=== PATIENT | male | born 1955 | race Caucasian/White ===

== ENCOUNTER 2022-08-31 00:30 | Day surgery (SDC) | payer MEDICARE, SELFPAY ==
[2022-08-19 15:01] VITALS: BMI 25.8
--- NOTE | 2022-08-31 07:25 | WPDANESEPPF ---
Anes - Initial Pre Proc Eval Procedure: Operation Date: 08/31/22 10:30 Proposed Procedures p Screening Colonoscopy - Dawson Sarkar MD <Kevin Bowen DO - Last Filed: 09/05/22 10:01> Date/Time: 08/31/22 07:25 <Keivn Bowen DO - Last Filed: 09/05/22 10:01> Surgeon: Dawson Sarkar MD <Kevin Bowen, DO - Last Filed: 09/05/22 10:01> Pre Op Diagnosis: neoplasm screening <Kevin Bowen DO - Last Filed: 09/05/22 10:01> Patient Data Age: 67 Gender: M Height: 1.83 m Weight: 86.3 kg <Kevin Bowen DO - Last Filed: 09/05/22 10:01> Allergies Allergy/AdvReac Type Severity Reaction Status Date / Time No Known Allergies Allergy Mild Verified 08/31/22 09:07 <Kevin Bowen DO - Last Filed: 09/05/22 10:01> Home Medications Medication Instructions Recorded Confirmed Type albuterol sulfate 90 mcg/actuation 2 inh inhalation PRN PRN Shortness 08/19/22 08/19/22 History aerosol inhaler Of Breath Or Wheezing sildenafil 100 mg tablet 100 mg PO PRN PRN Erectile 08/19/22 08/19/22 History Dysfunction <Kevin Bowen DO - Last Filed: 09/05/22 10:01> Patient hx anesthesia problems: none <Kavon Lozano MD - Last Filed: 08/31/22 10:17> Family hx anesthesia problems: none <Kavon Lozano MD - Last Filed: 08/31/22 10:17> Results Review: All pre-operative results and documents have been reviewed as part of the pre-operative evaluation. <Kevin Bowen DO - Last Filed: 09/05/22 10:01> PMFSH Past Medical History Medical History: Medical History Asthma Colon polyp GERD (gastroesophageal reflux disease) <Kevin Bowen DO - Last Filed: 09/05/22 10:01> Social History Social History: Social History Smoking status: Former smoker Alcohol intake: current Drinks per week: 24 Substance use: never Substance use type: does not use Living arrangements: alone Spiritual care concerns: No <Kevin Bowen DO - Last Filed: 09/05/22 10:01> Anes - Eval Final PreProcedure Day of Procedure 08/31/22 07:25 <Kevin Bowen DO - Last Filed: 09/05/22 10:01> Patient weight: normal <Kevin Bowen DO - Last Filed: 09/05/22 10:01> Heart: regular rate and rhythm <Kevin Bowen DO - Last Filed: 09/05/22 10:01> Lungs: clear to auscultation <Kevin Bowen DO - Last Filed: 09/05/22 10:01> Airway: Mallampati scale class II <Kevin Bowen DO - Last Filed: 09/05/22 10:01> Neurological: alert and oriented <Kevin Bowen DO - Last Filed: 09/05/22 10:01> Last oral intake: >/= 8 hours <Kevin Bowen DO - Last Filed: 09/05/22 10:01> ASA classification: III <Kevin Bowen DO - Last Filed: 09/05/22 10:01> Emergent: no <Kevin Bowen DO - Last Filed: 09/05/22 10:01> Anesthetic plan: proceed <Kevin Bowen DO - Last Filed: 09/05/22 10:01> Anesthesia type and monitoring: general GIVS and standard monitoring <Kevin Bowen DO - Last Filed: 09/05/22 10:01> Results Review: All pre-operative results and documents have been reviewed as part of the pre-operative evaluation. <Kevin Bowen DO - Last Filed: 09/05/22 10:01> Informed Consent: The patient's anesthetic plan and its attendant risks and benefits were discussed with the patient/family/POA. Questions were solicited and answers provided to the satisfaction of the patient/family/POA. <Kevin Bowen, - Last Filed: 09/05/22 10:01>
[2022-08-31 09:08] VITALS: BP 137/86; PULSE 67; RESP 20; TEMP 36.4; O2SAT 98
[2022-08-31] MEDS: LACTATED RINGERS 1,000 ML 150 ML IV CONT (09:18)
--- NOTE | 2022-08-31 10:07 | PM.HPGS ---
History of Present Illness History of Present Illness Consent: Risks, benefits, and alternatives have been discussed and questions answered. Patient agrees to proceed with procedure. Chief complaint: neoplasm screening Narrative: Toney Perez is a 67 year old male with colon polyp when had colonoscopy at 52 yo, last one 5 years ago Review of Systems Constitutional: Constitutional: Denies headache(s) and Denies weakness Eyes: Eyes: Denies blurry vision ENT: Reports Normal hearing present, Denies headache(s) and Denies neck pain Cardiovascular: Cardiovascular: Denies chest pain and Denies dyspnea Respiratory: Respiratory: Denies dyspnea Gastrointestinal: Gastrointestinal: Reports no additional gastrointestinal complaints Genitourinary: Genitourinary: Denies dysuria Musculoskeletal: Musculoskeletal: Denies neck pain Integumentary/Breasts: Skin/Breast: Denies dry skin Neurologic: Reports Normal hearing present, Denies headache(s) and Denies weakness Psychiatric: Psychiatric: Denies anxiety Endocrine: Endocrine: Denies change in body appearance Hematologic/Lymphatic: Hematologic/Lymphatic: Denies easy bleeding Allergic/Immunologic: Allergic/Immunologic: Denies urticaria PMFSH Past Medical History Medical History (Updated 08/31/22 @ 10:08 by Dawson Sarkar MD) Asthma Colon polyp GERD (gastroesophageal reflux disease) Social History Social History Smoking status: Former smoker Alcohol intake: current Drinks per week: 24 Substance use: never Substance use type: does not use Living arrangements: alone Spiritual care concerns: No Meds Home Medications and Allergies Home Medications Medication Instructions Recorded Confirmed Type albuterol sulfate 90 mcg/actuation 2 inh inhalation PRN PRN Shortness 08/19/22 08/19/22 History aerosol inhaler Of Breath Or Wheezing sildenafil 100 mg tablet 100 mg PO PRN PRN Erectile 08/19/22 08/19/22 History Dysfunction Allergies Allergy/AdvReac Type Severity Reaction Status Date / Time No Known Allergies Allergy Mild Verified 08/31/22 09:07 Vital Signs Vital Signs - 24 hr 08/31/22 09:08 Temperature 97.5 F L Pulse Rate 67 Respiratory Rate 20 Blood Pressure 137/86 Pulse Oximetry 98 Oxygen Delivery Room Air Exam Const: General: comfortable and no acute distress HENMT: Face/Nose/Sinus: Normal nares present Eyes: General: appearance normal, both eyes and all related structures Neck: Neck: no JVD Resp: Auscultation: clear to auscultation bilaterally Cardio: Rate: regular rate Rhythm: regular rhythm GI: Inspection: non-distended GI Palp: Yes Soft to palpation Skin: General skin exam: normal color Neuro: General: gait normal Speech: normal speech Extrem: General: normal to inspection Psych: Mental Status: mental status grossly normal Assessment and Plan Assessment and plan (1) Colon polyp: Code(s): K63.5 - Polyp of colon Status: Acute Assessment and Plan: colonoscopy
[2022-08-31 10:41] VITALS: BP 123/79; PULSE 74; RESP 19; O2SAT 100
[2022-08-31 10:51] VITALS: BP 128/93; PULSE 60; RESP 17; O2SAT 99
[2022-08-31 11:01] VITALS: BP 120/74; PULSE 62; RESP 17; O2SAT 99
== END 2022-08-31 11:05 | disposition home or self-care (01) ==
PROVIDERS: PCP Internal Medicine; Visit Provider Internal Medicine Gastroenterology
PROC: 0DJD8ZZ Inspection of Lower Intestinal Tract, Via Natural or Artificial Opening Endoscopic (ICD-10-PCS; CPT 45378; principal; 2022-08-31 10:30)
DX: Z12.11 Encounter for screening for malignant neoplasm of colon (principal); K62.1 Rectal polyp; K64.8 Other hemorrhoids; J45.909 Unspecified asthma, uncomplicated; Z79.51 Long term (current) use of inhaled steroids; Z87.891 Personal history of nicotine dependence
CPT/HCPCS: 45385; 88305; J2704; J7120

== ENCOUNTER 2022-11-15 10:02 | Emergency (ER) | payer MEDICARE, SELFPAY ==
[2022-11-15 10:17] VITALS: BP 130/83; PULSE 83; RESP 16; TEMP 36.7; O2SAT 96
--- NOTE | 2022-11-15 10:22 | ED.DENTAL ---
HPI - Dental/Oral General Chief complaint: Dental/Oral Stated complaint: tooth pain and facial swelling Time Seen by Provider: 11/15/22 10:14 History of Present Illness HPI Narrative: Patient is a 67-year-old male presenting with dental pain and facial swelling. Patient states that he is scheduled to have several teeth removed by an oral surgeon next week. States that he has been having trouble with his right upper molars. States that over the last day he has developed right-sided facial swelling and feels like there is an area of swelling next to the teeth. He called his PCP who advised he come in for evaluation. Denies fevers, difficulty swallowing or breathing. Related Data Home Medications Medication Instructions Recorded Confirmed albuterol sulfate 90 mcg/actuation 2 inh inhalation PRN PRN Shortness 08/19/22 08/19/22 aerosol inhaler Of Breath Or Wheezing sildenafil 100 mg tablet 100 mg PO PRN PRN Erectile 08/19/22 08/19/22 Dysfunction Allergies Allergy/AdvReac Type Severity Reaction Status Date / Time No Known Allergies Allergy Mild Verified 11/15/22 10:21 Review of Systems Review of Systems: All systems reviewed & are unremarkable except as noted in HPI and below PMFSH Past Medical History Medical History Asthma Colon polyp GERD (gastroesophageal reflux disease) Social History Social History Smoking status: Former smoker Alcohol intake: current Drinks per week: 24 Substance use: never Substance use type: does not use Living arrangements: alone Spiritual care concerns: No Exam Narrative: GENERAL: Well-appearing, well-nourished, and in no acute distress. HEAD: Normocephalic, atraumatic. EYES: PERRLA and EOMI. ENT: teeth 2,3 with caries; periapical abscess above tooth 2; no intraoral swelling, swallowing secretions without difficulty NECK: Supple. CHEST: No respiratory distress. HEART: Regular rate and rhythm ABDOMEN: Nondistended EXTREMITIES: Normal range of motion. No edema. SKIN: Warm, dry, no rash. NEURO: No focal deficits. Alert and oriented x3. PSYCH: Normal mood and affect. Course Vital Signs Vital signs: Vital Signs Temperature 98.0 F 11/15/22 10:17 Pulse Rate 83 11/15/22 10:17 Respiratory Rate 16 11/15/22 10:17 Blood Pressure 130/83 11/15/22 10:17 Pulse Oximetry 96 11/15/22 10:17 Oxygen Delivery Room Air 11/15/22 10:17 Temperature 98.0 F 11/15/22 10:17 Pulse Rate 83 11/15/22 10:17 Respiratory Rate 16 11/15/22 10:17 Blood Pressure 130/83 11/15/22 10:17 Pulse Oximetry 96 11/15/22 10:17 Oxygen Delivery Room Air 11/15/22 10:17 Procedures Abscess I/D oral: Date of Incision: 11/15/22 Time of Incision: 11:58 Side (if applicable): right Local Anesthetic: bupivacaine 0.25% Technique: incised with #11 blade Amount of fluid expressed (mL): 2 Irrigation: No Packing used?: none I&D Results: Pus MDM - Dental/Oral MDM Narrative Medical decision making narrative: Patient is a 67-year-old male presenting with concerns for dental abscess. Vitals are stable. Exam is concerning for a periapical abscess superior to tooth #2. The area was numbed with topical tetracaine/benzocaine with adequate anesthesia. The abscess was incised with an 11 blade with drainage of approximately 2 mm purulent drainage. The fluctuant mass has decreased in size. We will start the patient on Augmentin and ibuprofen. Patient will call his oral surgeon in the morning to try to move up his surgery. Appropriate return precautions were given. Patient voiced understanding and is agreeable with plan. Discharged in stable condition. Differential Diagnosis Differential diagnosis: Likely dental caries, toothache and dental abscess Medical Records Attestation: I reviewed the patient's
[2022-11-15] MEDS: AMOXICILLIN/CLAVULANATE K 875-125 MG TAB 1 TABLET PO (12:12)
== END 2022-11-15 12:14 | disposition home or self-care (01) ==
PROVIDERS: Emergency Provider Emergency Medicine; PCP Internal Medicine
DX: K04.7 Periapical abscess without sinus (principal); J45.909 Unspecified asthma, uncomplicated; K21.9 Gastro-esophageal reflux disease without esophagitis; Z86.010 Personal history of colon polyps; Z87.891 Personal history of nicotine dependence
CPT/HCPCS: 41800; 99283; A9270

== ENCOUNTER 2023-04-07 08:47 | Outpatient (CLI) | payer MEDICARE, SELFPAY ==
--- NOTE | 2023-04-13 18:42 | WPDHOMESLEEP ---
Sleep Study - Home Unattended Date of Study: 04/07/23 Ordering Provider: Belinda Okeefe DO Interpreting Provider: Belinda Okeefe DO Home Sleep Study Type: Watch PAT Height: 1.83 m Weight: 83.915 kg Body Mass Index: 25.0 Neck Circumference (inches): 15.5 [place]: 5 Reason for Sleep Study Difficulty falling asleep and staying asleep Sleep History The patient is a 67-year-old male with asthma, GERD, prostate cancer, colonic polyps, seasonal allergies and history of tobacco use that had a sleep study ordered for evaluation of sleep apnea. The patient denies awakening from sleep short of breath. He denies awakening at night with heartburn, belching or cough. He occasionally snores and is occasionally loud enough that others complain. He occasionally has trouble sleeping when he has a cold. He denies waking up gasping for air throughout the night. He denies having breathing problems at night observed by himself or others. He denies sweating excessively at night. He denies having heart palpitations or irregular heartbeats during the night. He occasionally falls asleep during the day but never while driving. He denies sleep paralysis and cataplexy. He denies having trouble at school or work due to sleepiness. He occasionally experiences vivid dreamlike scenes upon awakening or falling asleep. He denies feeling afraid of going to sleep. He denies having nightmares. He occasionally remembers his dreams. He frequently has thoughts racing through his mind. He denies feeling sad, depressed or anxious. He denies having muscular tension. He occasionally notices parts of his body jerk. He rarely kicks during the night. He occasionally has crawling and aching feelings in his legs but rarely has leg pain during the night. He denies grinding his teeth during sleep and denies awakening with morning jaw pain. He is rarely bothered by pain during the day but never awakened by pain during the night. He occasionally wakes up feeling stiff in the morning. He occasionally wakes up with sore or achy muscles. He rarely wakes up with pain in the neck, spine or other joints. He goes to bed at 11:00 p.m. on weekdays and at midnight on the weekends. It takes him a minimum of 30 minutes to fall asleep. He wakes up twice throughout the night to urinate and sometimes he is unable to fall back asleep. He wakes up around a.m. on both weekdays and weekends. He typically gets 4-7 hours of sleep per night. He will stay in bed for 20 minutes after waking up in the morning. He currently lives by himself. He denies consuming any caffeinated beverages within 2 hours of bedtime. He denies engaging in physical exercise before bedtime. He denies reading and watching television before falling asleep. He will occasionally take naps during the day and they are refreshing. He denies consuming caffeinated beverages throughout the day. He does not consume alcohol daily. He denies tobacco and recreational drug PMFSH Past Medical History Medical History Aftercare following right ankle joint replacement surgery Asthma Colon polyp GERD (gastroesophageal reflux disease) Prostate cancer Surgical History Surgical History Hx of tonsillectomy Social History Social History Smoking status: Former smoker Tobacco type: cigarettes Second hand tobacco smoke exposure: No Alcohol intake: current Drinks per week: 24 Substance use: never Substance use type: does not use Lack of Transportation: No Lack of Food: Never True Current Housing: I Have Housing Concerned About Future Housing: No Difficulty Paying Gas/Electric Bills: No Difficulty Paying for Meds: No Currently Unemployed: No Education: Bachelor's Degree Difficulty w/ Childcare or Family Care: No Living a
[2023-04-13 18:50] VITALS: BMI 25.0
== END 2023-04-09 08:00 | disposition home or self-care (01) ==
LOC: ANHCSM 08:48
PROVIDERS: PCP Family Medicine; Visit Provider Family Medicine
DX: G47.9 Sleep disorder, unspecified (principal)
CPT/HCPCS: 95800

== ENCOUNTER 2023-04-21 09:44 | Outpatient (CLI) | payer MEDICARE, SELFPAY ==
[2023-05-17 14:59] VITALS: BMI 25.0
--- NOTE | 2023-05-17 14:59 | WPDSLEEPSTUD ---
Sleep Study Date of Study: 04/21/23 Ordering Provider: Belinda Okeefe DO Interpreting Physician: Belinda Okeefe DO Sleep Study Type: Polysomnogram Height: 1.83 m Weight: 83.915 kg Body Mass Index: 25.0 Neck Circumference (inches): 16 [place]: 5 Reason for Sleep Study The patient had a WatchPAT home sleep test on 04/07/2023 that showed an overall AHI of 4.9 with desaturation down to 85%. He had an overall RDI of 18.8. Sleep History The patient is a 67-year-old male with asthma, GERD, prostate cancer, colonic polyps, seasonal allergies and history of tobacco use that had a sleep study ordered for evaluation of sleep apnea.? The patient denies awakening from sleep short of breath.? He denies awakening at night with heartburn, belching or cough.? He occasionally snores and is occasionally loud enough that others complain.? He occasionally has trouble sleeping when he has a cold.? He denies waking up gasping for air throughout the night.? He denies having breathing problems at night observed by himself or others.? He denies sweating excessively at night.? He denies having heart palpitations or irregular heartbeats during the night.? He occasionally falls asleep during the day but never while driving.? He denies sleep paralysis and cataplexy.? He denies having trouble at school or work due to sleepiness.? He occasionally experiences vivid dreamlike scenes upon awakening or falling asleep.? He denies feeling afraid of going to sleep.? He denies having nightmares.? He occasionally remembers his dreams.? He frequently has thoughts racing through his mind.? He denies feeling sad, depressed or anxious.? He denies having muscular tension.? He occasionally notices parts of his body jerk.? He rarely kicks during the night.? He occasionally has crawling and aching feelings in his legs but rarely has leg pain during the night.? He denies grinding his teeth during sleep and denies awakening with morning jaw pain.? He is rarely bothered by pain during the day but never awakened by pain during the night.? He occasionally wakes up feeling stiff in the morning.? He occasionally wakes up with sore or achy muscles.? He rarely wakes up with pain in the neck, spine or other joints.? He goes to bed at 11:00 p.m. on weekdays and at midnight on the weekends.? It takes him a minimum of 30 minutes to fall asleep.? He wakes up twice throughout the night to urinate and sometimes he is unable to fall back asleep.? He wakes up around a.m. on both weekdays and weekends.? He typically gets 4-7 hours of sleep per night.? He will stay in bed for 20 minutes after waking up in the morning.? He currently lives by himself.? He denies consuming any caffeinated beverages within 2 hours of bedtime.? He denies engaging in physical exercise before bedtime.? He denies reading and watching television before falling asleep.? He will occasionally take naps during the day and they are refreshing. He denies consuming caffeinated beverages throughout the day.? He does not consume alcohol daily.? He denies tobacco and recreational drug use. [facility] Past Medical History Medical History Aftercare following right ankle joint replacement surgery Asthma Colon polyp GERD (gastroesophageal reflux disease) Prostate cancer Surgical History Surgical History Hx of tonsillectomy Social History Social History Smoking status: Former smoker Tobacco type: cigarettes Second hand tobacco smoke exposure: No Alcohol intake: current Drinks per week: 24 Substance use: never Substance use type: does not use Lack of Transportation: No Lack of Food: Never True Current Housing: I Have Housing Concerned About Future Housing: No Difficulty Paying Gas/Electric Bills: No Difficulty Paying for Meds: No Currently Unemployed:
== END 2023-04-22 06:32 | disposition home or self-care (01) ==
LOC: ANHCSM 09:52
PROVIDERS: PCP Family Medicine; Visit Provider Family Medicine
DX: G47.39 Other sleep apnea (principal); G47.61 Periodic limb movement disorder
CPT/HCPCS: 95810

== ENCOUNTER 2023-05-18 15:52 | Outpatient (CLI) | payer MEDICARE, SELFPAY ==
[2023-05-18 17:03] LABS: Prostate Specific Antigen 5.6 ng/mL (< OR = 4.0)
== END 2023-05-18 15:53 | disposition home or self-care (01) ==
LOC: ANHLAB 15:54
PROVIDERS: PCP Family Medicine; Visit Provider Urology
DX: C61 Malignant neoplasm of prostate (principal)
CPT/HCPCS: 36415; 84153

== ENCOUNTER 2023-05-25 10:46 | Outpatient (CLI) | payer MEDICARE, SELFPAY ==
[2023-05-25 20:46] LABS: Ferritin 9.38 ng/mL (11.1-264)
== END 2023-05-25 10:47 | disposition home or self-care (01) ==
LOC: ANHGOSHLAB 10:48
PROVIDERS: PCP Family Medicine; Visit Provider Family Medicine
DX: D64.9 Anemia, unspecified (principal)
CPT/HCPCS: 36415; 82728

== ENCOUNTER 2024-02-14 11:29 | Outpatient (CLI) | payer MEDICARE, SELFPAY ==
--- NOTE | ~2024-02-14 | XR_ITS ---
Left foot Technique: AP, oblique, and lateral views were obtained. Clinical History: Pain Findings: No acute fracture or dislocation is seen. There is advanced degenerative change of the firs t MTP joint. Soft tissues are unremarkable. 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 Reviewed, dictated and finalized at location . 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
== END 2024-02-14 11:30 | disposition home or self-care (01) ==
PROVIDERS: PCP Podiatrist Foot & Ankle Surgery; Visit Provider Internal Medicine
DX: M19.072 Primary osteoarthritis, left ankle and foot (principal)
CPT/HCPCS: 73630

== ENCOUNTER 2024-03-03 09:10 | Outpatient (CLI) | payer MEDICARE, SELFPAY ==
--- NOTE | ~2024-03-03 | US_ITS ---
EXAMINATION: US aorta [facility] DATE: 03/03/2024 09:23 CDT INDICATION: History of tobacco use TECHNIQUE: Grayscale, color Doppler, and pulsed Doppler images of the aorta and common iliac arteries were obtained. COMPARISON: None. FINDINGS: The proximal aorta measures 2.2 cm greatest sagittal dimension. The mid aorta measures 2.2 cm greates t sagittal dimension. The distal aorta measures 2.2 cm greatest sagittal dimension. The common iliac arteries are not visualized due to bowel gas. IMPRESSION: 1. Normal caliber aorta without aneurysm. Reviewed, dictated and finalized at location B.
== END 2024-03-03 09:11 | disposition home or self-care (01) ==
LOC: MICIMG 09:10
PROVIDERS: PCP Family Medicine; Visit Provider Family Medicine
DX: Z13.6 Encounter for screening for cardiovascular disorders (principal); Z87.891 Personal history of nicotine dependence
CPT/HCPCS: 76706

== ENCOUNTER 2024-03-03 09:40 | Outpatient (CLI) | payer MEDICARE, SELFPAY ==
[2024-03-03 16:52] LABS: Basophils Percent Auto 0.6 % (0.2-1.2); Eosinophils Absolute Auto 0.1 K/mm3 (0-0.3); Eosinophils Percent Auto 1.9 % (0-4.4); Hematocrit 46.2 % (42.0-52.0); Hemoglobin 15.6 g/dL (14.0-18.0); Immature Granulocyte Absolute 0.05 K/mm3 (0.00-0.031); Immature Granulocyte Percent A 0.9 % (0-0.5); Lymphocytes Percent Auto 28.5 % (18.3-44.2); Mean Corpuscular HGB Conc 33.8 g/dl (32-36); Mean Corpuscular Hemoglobin 32.2 pg (26-34); Mean Corpuscular Volume 95.3 fl (80-100); Monocytes Absolute Auto 0.4 K/mm3 (0.1-0.6); Monocytes Percent Auto 7.6 % (2.6-8.5); Neutrophils Absolute Auto 3.2 K/mm3 (1.3-6.7); Neutrophils Percent Auto 60.5 % (45.5-73.1); Platelet Count Result 233 k/mm3 (150-375); Red Blood Count 4.85 M/mm3 (4.6-6.20); Red Cell Distribution Width 12.9 % (11.5-14.5); White Blood Count 5.3 K/mm3 (4.5-10.0)
[2024-03-03 17:11] LABS: Alanine Aminotransferase 29 U/L (6-50); Albumin Level 4.4 g/dL (3.5-5.1); Alkaline Phosphatase 63 U/L (38-126); Anion Gap 10 mmol/L (4-12); Aspartate Amino Transferase 56 U/L (17-59); Bilirubin,Total 0.6 mg/dL (0.2-1.3); Blood Urea Nitrogen 10 mg/dL (9-20); Calcium 9.3 mg/dL (8.4-10.2); Carbon Dioxide 25 mmol/L (22-30); Chloride 102 mmol/L (98-107); Cholesterol 200 mg/dL (0-200); Estimated Glomerular Filt Rate > 60; Glucose 82 mg/dL (65-110); HDL Direct 109 mg/dL; Potassium 3.9 mmol/L (3.4-5.0); Sodium 137 mmol/L (137-145); Triglycerides 44 mg/dL (<150)
[2024-03-03 17:21] LABS: LDL Cholesterol Direct 61 mg/dL
[2024-03-03 17:24] LABS: Free T4 Free Thyroxine 0.98 ng/mL (0.78-2.19); Vitamin D 25 Hydroxy 73.6 ng/mL
[2024-03-03 17:58] LABS: Hemoglobin A1C 5.4 % (<5.7)
== END 2024-03-03 09:41 | disposition home or self-care (01) ==
PROVIDERS: PCP Family Medicine; Visit Provider Family Medicine
DX: G47.00 Insomnia, unspecified (principal); D64.9 Anemia, unspecified; R53.83 Other fatigue; R73.9 Hyperglycemia, unspecified; E55.9 Vitamin D deficiency, unspecified; E78.5 Hyperlipidemia, unspecified
CPT/HCPCS: 36415; 80053; 80061; 82306; 82728; 83036; 84439; 84443; 85025